=== PATIENT | female | born 1950 | race Two or more races ===

== ENCOUNTER 2018-12-15 18:27 | Inpatient (IN) | payer OTHER ==
[~2018-12-15] VITALS: Ht 157.5 cm; Wt 70.3 kg
--- NOTE | 2018-12-15 19:08 | NUR ---
SE RECIBE PTE. FEMENINA EN AMBULANCIA EN COMPANIA DE FAMILIAR PTE. REFIERE DOLOR DE PECHO DESDE LAS 2 DE LA TARDE. REFIERE DOLOR DE ESPALDA YA QUE SUFRIO CAIDA EN [place] SE REALIZA EKG Y SE PRESENTA A MEDICO PARA EVALUACION Y FIRMA SE ESCANEA EKG LUEGO DE FIRMA DE MEDICO. SE UBICA EN SECCION K CAMA 8 SE CONECTA A MONITOR CARDIACO.
--- NOTE | 2018-12-16 01:05 | NUR ---
0040 SE RECIBE PACIENTE EN CUBICULO 16 EN EN POR ESCOLRA. SE CONECTA A MONITOR CARDIACO. PACIENTE CON VENOPUNCION EN MANO RT ANGIO # 18 LE BAJA TRIDILL 50MG/250ML A 3ML/HR. SE LE ORIENTA SOBRE CONTINUIDAD DE TRATAMIENTO Y REFIERE ENTENDER. SE LE COLOCA SHELLY Y PACIENTE ORINA ESPONTANEO 450 ML AMARILLO PETROS. SE LE PROVEE COMODIDAD BARANDAS ELEVADAS Y EN COMPANAI DE FAMILIAR. SE MANTIENE BAJO OSBERVACION POR CAMBIOS EN CONDICION
--- NOTE | 2018-12-16 01:41 | NUR ---
0120 PACIENTE REFIERE [place] DOLOR DE PECHO EN [address] EN TURNO Y LOPEZ REFIERE SE MIDA PRESION ARTERIAL MANUAL 0135 SE EJECUTA ORDEN Y PACIENTE PRESENTA BP:142/62, P:94 Y SE LE NOTIFIC ADR EN TURNO 0142 DR EVALUA PACIENTE Y REFIERE ENTRARA ORDEN DE MANEJO PARA EL DOLOR Y TITULAR EL TRIDIL A 5 ML/HR. ORDEN SE EJECUTA.
--- NOTE | 2018-12-16 04:08 | NUR ---
0150 SE LE ADMINISTRAN 1 GM DE ACETAMINOPHEN PO A PACIENTE DHRUV ORDEN MEDICA 0200 SE LE ADMINISTRA DEMEROL 25 MG IV EN 50 ML NSS A PACIENTE DHRUV ORDEN MEDICA SE MANTIENE PACIENTE BAJO OBSERVACION POR CAMBIOS 0400 SE MIDEN SV Y SE REPORTAN LOS MISMOS.
--- NOTE | 2018-12-16 07:51 | NUR ---
SE RECIBE PACIENTE ALERTA Y OORIEBTADA ACOP
--- NOTE | 2018-12-16 07:51 | NUR ---
SE RECIBE PACIENTE ALERTA SIDDIQI ORIENTADA ACOMPANADA DE FAMIKLIAR CONECTADA A MONITOR CARDIACO , SE OBSERVA CON TRIDIL BAJANDO 5ML/HR PACINETE REFIERE DOLOR EN AREA DE PECHO , SE AYAKA MUESTRAS DE TROPONINAS Y SE MANTIEIEN OBSERVACION POR CAMBIOS ENSUCONDICON. EN CONSULTA CON
[2018-12-18] MEDS ORDERED: NORFLEX100MG PO (12:40)
[2018-12-18] MEDS ORDERED: MEDROLPACK PO (12:41)
[2018-12-18] MEDS ORDERED: PEPCID AC20 MG PO (12:41)
== END 2018-12-18 21:26 | disposition home or self-care (01) | DRG 315 ==
LOC: ER 18:27 → SURH 12-16 12:21 → SEC-K 12-16 12:21 → SURH 12-16 14:14 → MEDI 12-17 17:01 → MEDJ 12-17 17:10 → MEDI 12-18 16:37
PROVIDERS: ADMIT Internal Medicine
PROC: B246ZZZ Ultrasonography of Right and Left Heart (ICD-10-PCS; principal; 2018-12-16)
PROC: BB24ZZZ Computerized Tomography (CT Scan) of Bilateral Lungs (ICD-10-PCS; 2018-12-16)
PROC: 0T9B70Z Drainage of Bladder with Drainage Device, Via Natural or Artificial Opening (ICD-10-PCS; 2018-12-16)
PROC: 4A12X4Z Monitoring of Cardiac Electrical Activity, External Approach (ICD-10-PCS; 2018-12-16)
DX: T82.855A Stenosis of coronary artery stent, initial encounter (principal); I25.110 Atherosclerotic heart disease of native coronary artery with unstable angina pectoris; I50.42 Chronic combined systolic (congestive) and diastolic (congestive) heart failure; I11.0 Hypertensive heart disease with heart failure; I34.0 Nonrheumatic mitral (valve) insufficiency; N39.8 Other specified disorders of urinary system; S16.1XXA Strain of muscle, fascia and tendon at neck level, initial encounter; G57.63 Lesion of plantar nerve, bilateral lower limbs; M54.5 Low back pain; Z79.01 Long term (current) use of anticoagulants